=== PATIENT | female | born 2005 | race Caucasian/White ===

== ENCOUNTER 2024-05-30 13:14 | Emergency (ER) | payer OTHER, SELFPAY ==
[2024-05-30 13:15] VITALS: BMI 33.3
[2024-05-30 13:20] VITALS: BP 133/85; PULSE 107; RESP 16; TEMP 37.1; O2SAT 97
--- NOTE | 2024-05-30 13:27 | XR_ITS ---
Examination: Pelvic ultrasound, transabdominal, complete Technique: Transabdominal ultrasound of the pelvis performed using grayscale imaging Date and time of exam: May 30, 2024 1416 hrs. Indications: Onset left-sided pelvic pain today Findings: Uterus 8.7 x 3.9 x 4.0 cm Endometrial stripe 1.0 cm No uterine mass or intrauterine gestation Right ovary 2.6 x 2.1 x 2.3 cm arterial flow small follicles Left ovary 7.3 x 5.0 x 7.2 cm arterial flow, complex cyst 5.3 x 4.2 x 5.3 cm Impression: Complex left ovarian cyst with internal echoes, 5.3 x 4.2 x 5.3 cm, consider hemorrhagic cyst Recommend 1 month follow-up pelvic sonography
--- NOTE | 2024-05-30 13:27 | PD.EDRME ---
Rapid Medical Screening Exam E Arrival date/time: 05/30/24 13:14 18-year-old female presents emergency dept today complains left-sided pelvic pain Chief Complaint: Abdominal Pain Vital signs: Vital Signs Temperature 98.8 F 05/30/24 13:20 Pulse Rate 107 H 05/30/24 13:20 Respiratory Rate 16 05/30/24 13:20 Blood Pressure 133/85 H 05/30/24 13:20 Pulse Oximetry (%) 97 05/30/24 13:20 Oxygen Delivery Method Room Air 05/30/24 13:20
[2024-05-30 13:50] LABS: Basophils % (Auto) 0 % (0-2.5); Eosinophils # (Auto) 0.1 Thou/mm3 (0.0-0.5); Eosinophils % (Auto) 1 % (0-10); Hematocrit 41.5 % (36.0-46.0); Hemoglobin 14.1 g/dL (12.0-16.0); Immature Granulocytes % (Auto) 0 % (0-0); Immature Granulocytes Auto 0.02 Thou/mm3 (0.00-0.00); Lymphocytes # (Auto) 2.2 Thou/mm3 (1.0-5.0); Lymphocytes % (Auto) 26 % (10-50); Mean Corpuscular Hemoglobin 30.6 pg (25.0-35.0); Mean Corpuscular Volume 90 fL (80-100); Monocytes # (Auto) 0.4 Thou/mm3 (0.0-0.8); Monocytes % (Auto) 5 % (0-12); Neutrophils # (Auto) 5.7 Thou/mm3 (1.8-7.7); Neutrophils % (Auto) 67 % (37-80); Nucleated Red Blood Cell % 0 /100 WBC (0); Platelet Count 232 Thou/mm3 (140-440); Red Blood Count 4.61 Miln/mm3 (4.00-5.20); White Blood Count 8.5 Thou/mm3 (4.5-11.0)
[2024-05-30 14:20] LABS: Alanine Aminotransferase 18 U/L (10-49); Albumin, Serum 4.8 gm/dL (3.5-5.0); Albumin/Globulin Ratio 1.7 (1.2-2.2); Alkaline Phosphatase 88 U/L (46-116); Anion Gap 7 (7-16); Aspartate Amino Transferase 14 U/L (0-34); BUN/Creatinine Ratio 14 Ratio (12-20); Bilirubin,Total 0.5 mg/dL (0.3-1.2); Blood Urea Nitrogen 11 mg/dL (9-23); Calcium 9.8 mg/dL (8.3-10.6); Calcium (Corrected) 9.8 mg/dL (8.5-10.1); Carbon Dioxide 28.4 mMol/L (20.0-31.0); Chloride 103 mMol/L (98-107); Creatinine (Component) 0.8 mg/dL (0.6-1.3); Globulin 2.8 gm/dL (2.3-3.5); Glucose 131 mg/dL (74-106); Lipase 33 U/L (12-53); Osmolality,Calculated 277 (275-295); Potassium 4.2 mMol/L (3.4-5.1); Sodium 138 mMol/L (136-145); Total Protein 7.6 gm/dL (5.7-8.2); eGFR > 60 See Note
[2024-05-30 15:08] LABS: Collection Type, Urine Clean Catch
[2024-05-30 15:15] LABS: Bacteria,Urine 3+; Bilirubin,Urine Negative (Negative); Blood,Urine Negative (Negative); Clarity,Urine Turbid (Clear/Hazy); Color,Urine Lt-Yellow (Lt Yel-Yel); Glucose, Urine Negative (Negative); HCG Qualitative,Urine Negative; Ketones,Urine Negative (Negative); Leukocyte Esterase,Urine Positive (Negative); Nitrite,Urine Negative (Negative); Protein,Urine Negative (Neg - Trace); RBC,Urine 17 /hpf (0-3); Specific Gravity,Urine 1.011 (1.001-1.035); Squamous Epithelial Cell,Urine 5 /hpf (0-5); Urobilinogen,Urine Negative mg/dL (0.0-1.0); WBC,Urine 36 /hpf (0-5)
[2024-05-30 15:17] LABS: Culture Indicated,Urine Yes
[2024-05-30 21:20] VITALS: BP 140/94; PULSE 96; RESP 16; TEMP 36.9; O2SAT 99
--- NOTE | 2024-05-30 22:01 | PD.EDABDPN ---
ED Abdominal Pain RME/HPI General Chief Complaint: Abdominal Pain Stated complaint: LLQ ABD PAIN/PCP SENT FOR US Time seen by provider: 05/30/24 21:51 Arrival date/time: 05/30/24 13:14 Limitations: no limitations RME / HPI RME / HPI narrative: 05/30/24 13:14 Dr. Parra's Main ED Evaluation: 18-year-old female presents emergency dept today complains left-sided pelvic pain x 3 days. Patient states her pain is intermittent, reporting it worsens with movement. She currently rates her pain a 3 out of 10 in severity. She denies any fever, chills, dysuria, back pain or any other associated symptoms. She denies being sexually active. LMP was 3 weeks ago. No known allergies. Related Data Previous Rx's ?Medication ?Instructions ?Recorded acetaminophen 325 mg capsule 325 mg PO QID PRN pain #20 caps 05/30/24 ibuprofen 600 mg tablet 600 mg PO TID PRN pain #20 tabs 05/30/24 Allergies Allergy/AdvReac Type Severity Reaction Status Date / Time NKA* Allergy Uncoded 05/30/24 13:17 Review of Systems Review of Systems Systems Reviewed: All systems reviewed, normal except as documented Past Medical History Past Medical History CARDIAC: Negative Congestive Heart Failure RESPIRATORY: Negative Chronic Obstructive Pulmonary Disease (COPD) GENITOURINARY: Negative Renal Disease ENDOCRINE: Negative Diabetes Mellitus Type 1 or Diabetes Mellitus Type 2 Social History SMOKING STATUS: Never smoker ED Exam General Limitations: Present no limitations General appearance: Present alert and in no apparent distress Head Head exam: Present atraumatic Eye Eye exam: Present normal appearance, PERRL and EOMI ENT ENT exam: Present normal exam, normal oropharynx and mucous membranes moist Neck Neck exam: Present normal inspection, full ROM and trachea midline Chest Chest inspection: Present normal inspection and symmetric chest wall rise Respiratory Respiratory exam: Present normal lung sounds bilaterally Cardiovascular Cardiovascular exam: Present regular rate, normal rhythm and normal heart sounds Abdominal Exam Abdominal exam: Present soft; Absent distention, tenderness, guarding, rebound or rigidity Extremities Exam Extremities exam: Present normal inspection and full ROM Back Exam Back exam: Present normal inspection and full ROM Neurological Exam Neurological exam: Present alert, oriented X3 and CN II-XII intact Psychiatric Psychiatric exam: Present normal affect and normal mood Skin Skin exam: Present warm, dry, intact and normal color Course Course Course Narrative: Patient states she feels significantly better after receiving Toradol. Patient is stable to be discharged home. Quality Measures none Orders Category Date Time Status US pelvic complete Stat Exams 05/30/24 13:27 Completed CBC Stat Lab 05/30/24 13:36 Completed Comprehensive Metabolic Panel Stat Lab 05/30/24 13:36 Completed HCG Qualitative,Urine Stat Lab 05/30/24 14:51 Completed Lipase Stat Lab 05/30/24 13:36 Completed UA, C/S IF [Urinalysis, C/S if Indicated] Stat Lab 05/30/24 14:51 Completed Urine Culture Stat Lab 05/30/24 14:51 Received Ketorolac Inj [Toradol Inj] Med 05/30/24 21:53 Discontinued 30 mg IM X1 ONE Vital Signs Vital signs: Vital Signs Temperature 98.8 F 05/30/24 13:20 Pulse Rate 107 H 05/30/24 13:20 Respiratory Rate 16 05/30/24 13:20 Blood Pressure 133/85 H 05/30/24 13:20 Pulse Oximetry (%) 97 05/30/24 13:20 Oxygen Delivery Method Room Air 05/30/24 13:20 Pulse ox is 97% on room air, which is normal according to my interpretation. Abdominal Pain MDM MDM Narrative MDM Narrative:: Suggested E/M Coding Level 14596 (This level has been selected based on the 2022 CPT guidelines for E/M codes in the ED.) COPA: This patient has moderate complexity 1 undiagnosed new problem with uncertain prognosis DATA: This patient required extensive data complexity Tests Ordered: 3 Tests Reviewed: 3 External Notes: 1 Independent Test Interpretation? Yes RISK: This patient has moderate risk due to prescription drug management Patient data External records reviewed:: [facility] previous records (Per chart review, patient has no relevant previous ED visits.) Clinical information provided by:: patient Social determinants that could affect healthcare access:: none Patient has the following chronic illnesses:: none How is presenting disease/condition affected by chronic disease/condition?: no chronic disease Evaluation data The following diagnostics were reviewed and interpreted by me:: lab results and radiology exam(s) Lab and/or radiology exams considered but not ordered:: none Interpretation Summary: WBC count is normal, CMP is normal, Lipase is normal, HCG is negative, according to my interpretation. -------- [facility] Report Signed Patient: NICOLA CHAMBERS [facility] Record#: [id number] Birthdate: 2005 Age/Sex: 18 / F Location: [facility] Attending Dr: Ordering Physician: Alva NAVARRO)Bora NP Date of Service: 05/30/24 Procedure(s): US pelvic complete Accession Number(s): [id number] cc: Alva NAVARRO),Bora QUISPE; Emmanuel Null MD; Juan Krause MD~ Examination: Pelvic ultrasound, transabdominal, complete Technique: Transabdominal ultrasound of the pelvis performed using grayscale imaging Date and time of exam: May 30, 2024 1416 hrs. Indications: Onset left-sided pelvic pain today Findings: Uterus 8.7 x 3.9 x 4.0 cm Endometrial stripe 1.0 cm No uterine mass or intrauterine gestation Right ovary 2.6 x 2.1 x 2.3 cm arterial flow small follicles Left ovary 7.3 x 5.0 x 7.2 cm arterial flow, complex cyst 5.3 x 4.2 x 5.3 cm Impression: Complex left ovarian cyst with internal echoes, 5.3 x 4.2 x 5.3 cm, consider hemorrhagic cyst Recommend 1 month follow-up pelvic sonography Dictated By: Juan Krause MD Signed By: <Electronically signed by Juan Krause MD in OV> 05/30/24 1432 Medications / Prescriptions Medications or Prescriptions considered but not ordered:: nones Medication administrations:: Medication Administration History Discontinued Medications Ketorolac Tromethamine (Ketorolac Inj 60 Mg/2 Ml Vial) 30 mg IM X1 ONE Stop: 05/30/24 21:54 Last Admin: 05/30/24 22:09 Dose: 30 mg Documented By: KF see above Consultations Consultation(s) initiated? (list below): No Diagnosis Differential diagnosis abdominal pain: other (ovarian cyst, UTI, pyelonephritis, kidney stone) Most likely diagnosis given after review of the tests above:: see below Admission Indicated Admission indicated?: not indicated Admission Request Was there a request for admission?: No Disposition Plan Disposition Plan: Discharge Discharge Attestation Discharge Attestation: The patient and all family members were given an opportunity to ask questions and understood the discharge instructions. Discharge instructions specifically effects, indications for sooner follow up or return to the emergency department, and the expected course of current diagnosis. Patient condition: Stable Discharge Plan Plan Patient Disposition: HOME (Self Care) Patient condition on transfer: Stable Prescriptions/Referrals Prescriptions/Med Rec: New ibuprofen 600 mg tablet 600 mg PO TID PRN (Reason: pain) Qty: 20 0RF Rx Instructions: Take with food acetaminophen 325 mg capsule 325 mg PO QID PRN (Reason: pain) Qty: 20 0RF Referrals: Emmanuel Null MD [Primary Care Provider] - In 1 week Problem List Clinical Impression: Complex cyst of left ovary Patient/Caregiver Discharge Instructions Education Materials: ED Ovarian Cyst Additional Instructions: DISCHARGE INSTRUCTIONS Even though you have been discharged from the Emergency Department, there are several things that you should do to ensure that you receive proper care: 1. DO READ your discharge instructions as these contain important information concerning your medical care. 2. If medication has been prescribed for your condition, fill the prescription as soon as possible and follow the directions on the medication. 3. RETURN AT ONCE TO THE EMERGENCY DEPARTMENT if you have any problems or concerns. These include but are not limited to fever, worsening pain(belly, chest, head, etc...), worsening shortness of breath, uncontrollable bleeding, inability to tolerate food and water, or any condition that makes you question your well-being. Also, if your symptoms do not improve in the next 12-24 hours, return to the ER or seek medical care immediately.? 4. Be sure to follow up with your regular physician or specialist as instructed at discharge as this is the best way to ensure that you receive the very best of care. If you do not have a primary care physician, please contact a physician group and make an appointment. 5. Please visit [employer]?for coupons regarding your prescriptions. It is a free service for you to use and can help reduce the cost of your medication. 6. You can call me in 48 hours and/or text me so I can get you the results of your urine culture if you are not unable to get to your primary care for follow-up. My cell phone number is [phone] We would like to thank you for coming today and our hope is that we served you and your family well during your stay Print Language: Syriac Stand Alone Forms: [facility] Award Info., Patient Portal Info Letter
[2024-05-30] MEDS: KETOROLAC INJ 60 MG/2 ML VIAL 30 MG IM (22:09)
== END 2024-05-30 22:36 | disposition home or self-care (01) ==
PROVIDERS: Nurse Practitioner Primary Care; Emergency Provider Emergency Medicine; PCP Family Medicine
DX: N83.202 Unspecified ovarian cyst, left side (principal)
CPT/HCPCS: 36415; 76856; 80053; 81001; 81025; 83690; 85025; 87086; 96372; 99284; J1885

== ENCOUNTER 2025-01-21 01:03 | Emergency (ER) | payer OTHER, SELFPAY ==
[2025-01-21 01:04] VITALS: BMI 34.9
[2025-01-21 01:27] VITALS: BP 125/84; PULSE 120; RESP 18; TEMP 36.9; O2SAT 96
--- NOTE | 2025-01-21 01:49 | EDNOTE_ITS ---
ED Allergic Reaction RME/HPI General Chief complaint: Allergic Reaction Stated complaint: HIVES Time Seen by Provider: 01/21/25 01:38 Arrival date/time: 01/21/25 01:03 19F with no significant PMH presents to ED with 1 day of generalized itchy rash. Patient denies new meds, foods, and hygiene products. Patient went to , who gave 25 mg IM benadryl and prescription of 20 mg BID prednisone. Limitations: no limitations Related Data Previous Rx's ?Medication ?Instructions ?Recorded acetaminophen 325 mg capsule 325 mg PO QID PRN pain #2 0 caps 05/30/24 ibuprofen 600 mg tablet 600 mg PO TID PRN pain #20 t abs 05/30/24 Allergies Allergy/AdvReac Type Severity Reaction Status Date / Time No Known Allergies Allergy Verified 01/21/25 01:08 Review of Systems Review of Systems Systems Reviewed: All systems reviewed, normal except as documented Integumentary/Breasts Skin/Breast: Reports as per HPI, Reports pruritus and Reports rash Past Medical History Past Medical History CARDIAC: Negative Congestive Heart Failure RESPIRATORY: Negative Chronic Obstructive Pulmonary Disease (COPD) GENITOURINARY: Negative Renal Disease ENDOCRINE: Negative Diabetes Mellitus Type 1 or Diabetes Mellitus Type 2 Social History SMOKING STATUS: Never smoker ED Exam General Limitations: Present no limitations General appearance: Present alert and in no apparent distress Head Head exam: Present atraumatic Neck Neck exam: Present normal inspection, full ROM and trachea midline Chest Chest inspection: Present normal inspection and symmetric chest wall rise Neurological Exam Neurological exam: Present alert and oriented X3 Psychiatric Psychiatric exam: Present normal affect and normal mood Skin Skin exam: Present warm, dry, intact, normal color and rash Course Quality Measures none Orders Category Date Time Status Dexamethasone Inj [Decadron Inj] Med 01/21/25 02:00 Discontinued 20 mg PO X1 ONE Famotidine [Pepcid] Med 01/21/25 01:41 Discontinued 40 mg PO X1 ONE Vital Signs Vital signs: Vital Signs Temperature 98.4 F 01/21/25 01:27 Pulse Rate 120 H 01/21/25 01:27 Respiratory Rate 18 01/21/25 01:27 Blood Pressure 125/84 01/21/25 01:27 Pulse Oximetry (%) 96 01/21/25 01:27 Oxygen Delivery Method Room Air 01/21/25 01:27 O2 at 96% on RA and WNLs Allergic Reaction MDM Narrative MDM Narrative:: 19F with no significant PMH presents to ED with 1 day of generalized itchy rash. Patient denies new meds, foods, and hygiene products. Patient went to , who gave 25 mg IM benadryl and prescription of 20 mg BID prednisone. Physical exam reveals generalized urticarial rash. Speech normal. Normal WOB. Patient is afebrile, calm, and alert. Meds given. Patient did not want to wait for observation period. Patient data External records reviewed:: [facility] previous records Clinical information provided by:: patient Social determinants that could affect healthcare access:: none Patient has the following chronic illnesses:: none How is presenting disease/condition affected by chronic disease/condition?: no chronic disease Evaluation data The following diagnostics were reviewed and interpreted by me:: other (specify) (none) Lab and/or radiology exams considered but not ordered:: not ordered Interpretation Summary: n/a Medications / Prescriptions Medications or Prescriptions considered but not ordered:: ordered Medication administrations:: Medication Administration History Discontinued Medications Dexamethasone Sodium Phosphate (Dexamethasone Sod Phos Inj 10 Mg/Ml Vial) 20 mg PO X1 ONE Stop: 01/21/25 02:01 Last Admin: 01/21/25 02:05 Dose: 20 mg Documented By: GHASSAN Comments: oral administration Famotidine (Famotidine 20 Mg Tablet) 40 mg PO X1 ONE Stop: 01/21/25 01:42 Last Admin: 01/21/25 02:03 Dose: 40 mg Documented By: GHASSAN above Consultations Consultation(s) initiated? (list below): No Diagnosis Differential Diagnosis allergic reaction: anaphylaxis, allergic reaction, angioedema, contact dermatitis, adverse reaction to drug, viral enanthem and urticaria Most likely diagnosis given after review of the tests above:: urticaria Admission Indicated Admission indicated?: not indicated Explain why admission is indicated or not indicated:: outpatient Admission Request Was there a request for admission?: No Disposition Plan Disposition Plan: Discharge Discharge Attestation Discharge Attestation: The patient and all family members were given an opportunity to ask questions and understood the discharge instructions. Discharge instructions specifically effects, indications for sooner follow up or return to the emergency department, and the expected course of current diagnosis. Patient condition: Stable Discharge Plan Plan Patient Disposition: HOME (Self Care) Discharge Disposition comment: Stable Prescriptions/Referrals Prescriptions/Med Rec: No Action ibuprofen 600 mg tablet 600 mg PO TID PRN (Reason: pain) Qty: 20 0RF Rx Instructions: Take with food acetaminophen 325 mg capsule 325 mg PO QID PRN (Reason: pain) Qty: 20 0RF Problem List Clinical Impression: Urticaria Patient/Caregiver Discharge Instructions Education Materials: ED Hives (Adult) Additional Instructions: Please follow-up with PCP within 24-48 hours and return immediately if symptoms worsen. Continue taking prescribed meds. Print Language: Lithuanian Stand Alone Forms: Patient Portal Info Letter MAHESH/EDIN Supervising Physician MAHESH/EDIN Supervising Physician: Dr. Petty
[2025-01-21] MEDS: FAMOTIDINE 20 MG TABLET 40 MG PO (02:03)
[2025-01-21] MEDS: DEXAMETHASONE SOD PHOS INJ 10 MG/ML VIAL 20 MG PO (02:05)
[2025-01-21 02:13] VITALS: PULSE 96
== END 2025-01-21 02:16 | disposition home or self-care (01) ==
PROVIDERS: Emergency Provider Emergency Medicine
DX: L50.9 Urticaria, unspecified (principal)
CPT/HCPCS: 99283; J1100; A9270